=== PATIENT | female | born 1965 | race Caucasian/White ===

== ENCOUNTER 2018-03-29 14:13 | Outpatient (CLI) | payer OTHER | END 2018-03-29 20:04 | disposition home or self-care (01) | LOC: MCA 14:13 | PROVIDERS: ATTEND General Practice | DX: Z01.818 Encounter for other preprocedural examination (principal); I51.7 Cardiomegaly; R94.31 Abnormal electrocardiogram [ECG] [EKG]; I10 Essential (primary) hypertension; I25.2 Old myocardial infarction; I25.10 Atherosclerotic heart disease of native coronary artery without angina pectoris | CPT/HCPCS: 93005 ==

== ENCOUNTER 2018-07-27 20:02 | Emergency (ER) | payer OTHER ==
[~2018-07-27] VITALS: Ht 175.3 cm; Wt 68.5 kg
[2018-07-27 20:06] VITALS: BP 118/71
[2018-07-27] MEDS ORDERED: CEPHALEXIN 500 MG CAP PO ONE (20:25)
[2018-07-27 21:14] VITALS: BP 120/82
== END 2018-07-27 21:14 | disposition home or self-care (01) ==
LOC: MED 20:02
DX: T87.43 Infection of amputation stump, right lower extremity (principal); F41.9 Anxiety disorder, unspecified; J44.9 Chronic obstructive pulmonary disease, unspecified; Z86.73 Personal history of transient ischemic attack (TIA), and cerebral infarction without residual deficits; Z90.710 Acquired absence of both cervix and uterus; Z88.0 Allergy status to penicillin; Z88.8 Allergy status to other drugs, medicaments and biological substances
CPT/HCPCS: 99283

== ENCOUNTER 2018-08-14 17:11 | Emergency (ER) | payer OTHER ==
[~2018-08-14] VITALS: Ht 170.2 cm; Wt 68.0 kg
[2018-08-14 17:35] VITALS: BP 112/72
--- NOTE | 2018-08-14 19:24 | NUR ---
PT WHEELCHAIR TO BED 3
--- NOTE | 2018-08-14 19:35 | NUR ---
PT DROWSY AROUSABLE TO NAME, COMES TO ER FOR REDNESS TO R STUMP. 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 +4 SLUGGISH PERRLA, WHEELCHAIR BOUND L AKA WELL. NO EDEMA NOTED. LUNGS CLEAR TO AUSCULTATION. ABD SOFT NON DISTENDED, PT VOIDING. DRESSING TO R STUMP MINIMAL YELLOW DRAINAGE NOTED. PT DENIES PAIN @ THIS TIME. WILL CONTINUE TO MONITOR
[2018-08-14] MEDS ORDERED: CLINDAMYCIN 600 MG/4 ML VIAL IM ONE (21:15)
[2018-08-14 21:35] VITALS: BP 111/68
--- NOTE | 2018-08-14 21:38 | NUR ---
Patient discharged with v/s stable. Written and verbal after care instructions given and explained. Patient alert, oriented and verbalized understanding of instructions. Wheel Chair Assisted with to home. All questions addressed prior to discharge. ID band removed. Patient advised to follow up with PMD.NO Rx given. Patient educated on indication of medication including possible reaction and side effects. Opportunity to ask questions provided and answered.
== END 2018-08-14 21:35 | disposition home or self-care (01) ==
LOC: MED 17:11
DX: L03.115 Cellulitis of right lower limb (principal); J44.9 Chronic obstructive pulmonary disease, unspecified; F17.200 Nicotine dependence, unspecified, uncomplicated; Z86.73 Personal history of transient ischemic attack (TIA), and cerebral infarction without residual deficits; Z90.710 Acquired absence of both cervix and uterus; Z88.0 Allergy status to penicillin; Z88.6 Allergy status to analgesic agent
CPT/HCPCS: 96372; 99283; J3490